=== PATIENT | female | born 1985 | race Caucasian/White ===

== ENCOUNTER 2019-11-14 20:24 | Emergency (ER) | payer BC ==
[~2019-11-14] VITALS: Ht 170.2 cm; Wt 87.1 kg
[2019-11-14 20:29] VITALS: Ht 170.2 cm; Wt 87.1 kg
[2019-11-14 23:12] LABS: BASOPHIL % 0.3 % (0-2); PLATELET COUNT 265 x10^3mcL (130-400)
[2019-11-14 23:16] LABS: RED CELL DISTRIBUTION WIDTH 14.8 % (11.5-14.5)
[2019-11-14 23:25] LABS: CALCIUM 8.5 mg/dL (8.5-10.1); CARBON DIOXIDE 29.2 mmol/L (21-32); CHLORIDE SERUM 103 mmol/L (98-107); CREATININE SERUM 0.8 mg/dL (0.6-1.0); GFR1 > 60 mL/min; GLUCOSE SERUM 108 mg/dL (74-106); POTASSIUM SERUM 3.5 mmol/L (3.5-5.1); SODIUM SERUM 138 mmol/L (136-145)
[2019-11-14 23:27] LABS: AMPHETAMINE QUAL UR NONE DETECTED (See below)
[2019-11-14 23:28] LABS: ALBUMIN 3.5 g/dL (3.4-5.0); ALKALINE PHOSPHATASE 86 U/L (46-116); ALT/SGPT 28 U/L (14-59); AST/SGOT 17 U/L (15-37); BILIRUBIN TOTAL 0.3 mg/dL (0.20-1.00); LIPASE 137 IU/L (73-393); TOTAL PROTEIN, SERUM 7.6 g/dL (6.4-8.2)
[2019-11-15 00:14] VITALS: BP 105/66
== END 2019-11-15 00:14 | disposition home or self-care (01) ==
LOC: ED 20:24
PROVIDERS: Emergency Medicine
DX: F41.9 Anxiety disorder, unspecified (principal); R07.89 Other chest pain; F12.20 Cannabis dependence, uncomplicated; Z98.890 Other specified postprocedural states; Z90.49 Acquired absence of other specified parts of digestive tract
CPT/HCPCS: 36415; 85378; G0480

== ENCOUNTER 2020-05-30 22:55 | Emergency (ER) | payer BC ==
[~2020-05-30] VITALS: Ht 170.2 cm; Wt 79.4 kg
[2020-05-30 23:08] VITALS: Ht 170.2 cm; Wt 79.4 kg
[2020-05-30 23:53] VITALS: BP 149/88
== END 2020-05-30 23:53 | disposition home or self-care (01) ==
LOC: ED 22:55
DX: R51 Headache (principal); R13.10 Dysphagia, unspecified; Z90.49 Acquired absence of other specified parts of digestive tract; Z98.890 Other specified postprocedural states